=== PATIENT | female | born 1955 ===

== ENCOUNTER 2018-09-03 07:27 | Outpatient (CLI) | payer OTHER ==
[~2018-09-03 07:27] MED LIST: CALCIUM1 TAB PO; FOSAMAX70 MG PO; NEURONTIN300 MG PO; VALACYCLOVIR1000 MG PO; VITAMIN B COMPL1 CAP PO; VITAMIN D10000 UNIT PO
== END 2018-09-03 07:34 | disposition home or self-care (01) ==
LOC: SONOGRAMA 07:27
DX: E04.1 Nontoxic single thyroid nodule (principal)